=== PATIENT | male | born 1960 | race Caucasian/White ===

== ENCOUNTER 2025-01-05 20:46 | Inpatient (IN) | payer OTHER, SELFPAY ==
[2025-01-05] VITALS (8 sets, daily range): BP systolic 89–130; BP diastolic 67–113; BMI 27.7; BMI 26.8
[2025-01-05 17:25] LABS: Hematocrit 47.5 % (39.0-52.0); Hemoglobin 16.2 g/dL (13.0-18.0); Mean Corp Hgb Conc. 34.1 g/dL (33.0-37.0); Mean Corpuscular Volume 89.6 fL (80.0-94.0); Platelet Count 197 10^3/uL (130-400); Red Cell Dist. Width 13.8 % (11.5-14.5)
[2025-01-05 17:43] LABS: ALT (SGPT) 53 U/L (0-50); AST (SGOT) 36 U/L (17-59); Albumin 4.1 g/dl (3.5-5.0); Alkaline Phosphatase 65 U/L (38-126); Blood Urea Nitrogen 60 mg/dl (9-20); Calcium 9.4 mg/dl (8.4-10.2); Carbon Dioxide 20 mmol/L (22-30); Chloride 101 mmol/L (98-107); Glucose 171 mg/dl (70-99); Potassium 4.4 mmol/L (3.5-5.1); Sodium 135 mmol/L (135-145); Total Protein 6.8 g/dl (6.3-8.2); eGFR 20.56
--- NOTE | 2025-01-05 18:02 | ED.GENMED ---
History of Present Illness
General
Chief Complaint: Abdominal Symptoms
Source: patient
Exam Limitations: none
Time Seen by Provider: 01/05/25 17:48
Nursing documentation reviewed up to this point in time: agreed with
History of Present Illness
History of Present Illness:
Patient is a 64 yr old male with past medical history of Brugada syndrome(followed by cardiology at [facility]) lung cancer kidney cancer hypertension hyperlipidemia presents to the ER for evaluation. Patient has had
diarrhea(approximately 7-10 episodes of liquid diarrhea a day) and fever for the past 3 days as high as 101.9.
Patient does feel very weak.
gave Tylenol this a.m. which did not relieve patient's fever and then gave ibuprofen
Phy Exam
General Physical Exam
General Presentation: no apparent distress
General age: appears stated age
General Skin: warm and dry
General Habitus: normal
General Mental: alert
General Hydration: dry mucous membranes
ENT Exam
ENT Exam: other (Dry mucous membranes)
Cardiovascular Exam
Cardiovascular Exam: no murmur and tachycardia
Pulmonary Exam
Pulmonary Exam: lungs clear and no respiratory distress
Gastrointestinal Exam
Gastrointestinal Exam: non tender and soft
Neurological Exam
Neurological Exam: alert and oriented x3
Musculoskeletal Exam
Musculoskeletal Exam: full ROM
Skin Exam
Skin Exam: normal color and warm/dry
Psychiatric Exam
Psychiatric Exam: normal mood/affect
Course
Orders/Labs/Results
Orders:
Orders
01/05/25 17:04
EKG [Electrocardiogram (*1)] Urgent
Reason for Study: Abdominal Pain
EKG- Treatment ONCE
01/05/25 17:16
Complete Blood Count/With Diff Urgent
Comprehensive Metabolic Panel Urgent
Manual Differential Urgent
01/05/25 18:04
Acetaminophen [Tylenol] 650 mg PO NOW STA
01/05/25 18:05
0.9% Sodium Chloride 1000 ml [Nss] 1,000 ml IV BOLUS
01/05/25 18:16
Ondansetron Injectable [Zofran] 4 mg IV NOW STA
01/05/25 18:28
Stool Culture Urgent
FRANKIE Source: Feces/Stool
Specimen Description:
Date Specimen was Collected: 01/05/25
Time Specimen was Collected: 18:27
01/05/25 19:32
Chest [CR Chest - 2 Views ] Urgent
Comment:
Reason For Exam: cough/fever
01/05/25 19:42
COVID-19 Antigen Urgent
Source: Nasal Swab
Influenza A+B Rapid Molecular Urgent
FRANKIE Source: Nasal Swab
Specimen Description:
01/05/25 20:12
Urinalysis Reflex To Culture Urgent
01/05/25 20:24
Lactic Acid Q4H
Comment: CANCEL 2nd LACTIC ACID IF 1st LACTIC ACID IS LESS THAN 2
Blood Culture Q30M
FRANKIE Source: Blood/Venous
Specimen Description:
Blood Culture Q30M
FRANKIE Source: Blood/Venous
Specimen Description:
01/05/25 20:38
Admit/Transfer Patient As Directed
Co-Sign Provider:
Level of Care: Inpatient admission
Assign to:: Telemetry
Physician / Group: mark
Diagnosis: acute viral gastronteritis
Reason for Telemetry: Arrhythmia
Date to Stop Telemetry: 01/08/25
Time to Stop Telemetry: 11:00
Reason for Hospitalization: acute viral gastronteritis
Expected length of stay greater than two midnights?: Yes
ELOS- Estimated Length of Stay in days: 2
I certify the patient meets the requirements for IP care: Yes
01/05/25 20:39
Code Status As Directed
Resuscitation Status: Full Code
PRN Pain Medication Management As Directed
May give lesser potent ordered pain med per pt: Yes
preference::
Protocol:: Medication orders for pain may be administered in a
manner that supports deferring to patient preference
when the pt is:
- Requesting an ordered lesser potent pain medication.
Least to most potent pain medications are defined
as: acetaminophen < NSAID < tramadol < opioids
(morphine, oxycodone, hydromorphone).
- Requesting a lesser dose of the same medication IF
ORDERED.
- Requesting a less intrusive route of administration
if both routes are prescribed by the provider (PO <
IV).
01/05/25 20:45
Add On - Microbiology Urgent
Tests Added?: CDiff & Norovirus
01/06/25 00:15
Lactic Acid Q4H
Comment: CANCEL 2nd LACTIC ACID IF 1st LACTIC ACID IS LESS THAN 2
01/08/25 11:00
DC Protocol for Telemetry ONCE
Abnormal Lab Results
01/05/25
17:16
Band Neutrophils 24 H %
(0-3)
Lymphocytes (Manual) 14 L %
(20-51)
Carbon Dioxide 20 L mmol/L
(22-30)
BUN 60 H mg/dl
(9-20)
Creatinine 3.2 H mg/dL
(0.7-1.3)
Glucose 171 H mg/dl
(70-99)
Total Bilirubin 1.7 H mg/dl
(0.2-1.3)
ALT 53 H U/L
(0-50)
01/05/25 17:16
01/05/25 17:16
Vital Signs
Initial and Last Documented VS:
Initial Vital Signs
Temp Pulse Resp BP Pulse Ox
97.6 F 104 18 111/73 97
01/05/25 17:02 01/05/25 17:02 01/05/25 17:02 01/05/25 17:02 01/05/25 17:02
Last Documented Vital Signs
Temp Pulse Resp BP Pulse Ox
98.3 F 102 18 130/113 97
01/05/25 20:05 01/05/25 19:30 01/05/25 19:30 01/05/25 19:18 01/05/25 19:30
Metal Fabrication Supervisor consulted with Physician
Metal Fabrication Supervisor consulted with physician?: Yes
Name of Physician Consulted: Padmini
MDM/Problems Addressed
Differential Diagnosis Includes:
Not not limited to viral syndrome, dehydration, colitis
MDM/Problems Addressed:
As documented patient is a 64 old male with Brugada syndrome and several days of liquid diarrhea up to 10 episodes today associated with fever. no blood ;minimal cough no chest pain no shortness of breath no abdominal pain no other sick contacts.
Patient presented to the ER feeling weak. Patient presented to the ER afebrile here with normal white count stable hemoglobin BUN/creatinine are elevated at 60 and 3.2 with a normal potassium. Patient was given fluids. No acute findings on chest
x-ray read by me. Will check urine lactic and blood cultures. Patient is negative for COVID and flu. Will require admission for renal insufficiency recent viral syndrome with fever with concurrent Brugada syndrome.
Chronic conditions affecting care:
Brugada syndrome
*Radiology
Radiology exam reviewed: radiology read reviewed
*Pulse Oximetry
SaO2: 97
Oxygen Mode of Delivery: Room air
Patient hypoxic: no
*Critical Care Note
Total Time (30-74mins, 75-104mins- exclusive of procedures): Not Applicable
Update Note
Update Note:
ED physician DR Robbins spoke with cardiology DR Cabrera
ED Attending Note
-
Portions of this chart may have been created with voice recognition software.� Occasional wrong word or��sound alike� substitutions may have occurred due to the inherent limitations of voice recognition software.
Discharge Plan
Departure
Patient Disposition: Admit
Date of Disposition: 01/05/25
Time of Disposition: 20:19
Admit to: Telemetry
Admit to doctor: hospitalist
Presentation/result/management discussed w/ accepting MD/DO: Hospitalist
Patient with high blood pressure during this ER visit?: No
Covid-19: Not Applicable
Discharge Problem:
Acute renal insufficiency, Acute dehydration, Diarrhea
Interventions
Interventions:
*Risk Screen - Suicide Last Done: 01/05/25 17:03
*General Assessment Last Done: 01/05/25 17:03
*Neglect/Abuse Screening Last Done: 01/05/25 17:03
*ED COVID-19 Vaccine History Last Done: 01/05/25 17:03
HC-B[facility]kls-Yvadbe[facility] Assessment Last Done: 01/05/25 18:00
[2025-01-05 18:32] LABS: Absolute Neutrophils -Man Diff 4.4 10^3/uL (1.4-6.5); Normal RBC Morphology Yes; Platelets Checked Yes; Total Cells Counted 100
[2025-01-05] MEDS: TYLENOL 650 MG PO ×2 (19:22→23:05)
[2025-01-05] MEDS: ZOFRAN 4 MG IV (19:22)
[2025-01-05] MEDS: NSS 1000 IV ×2 (19:23→23:01)
[2025-01-05 20:06] LABS: COVID-19 Antigen Negative (Negative)
--- NOTE | 2025-01-05 20:42 | HPS.HSE ---
Family Physician
-
Family Physician: Margarita Pak MD
Chief Complaint
-
diarrhea
History of Present Illness
64-year-old Lao-speaking male past medical history of Brugada syndrome, diabetes, lung cancer status post surgery/chemotherapy, kidney cancer status post ablation, liver fibrosis secondary to fatty liver, hypertension, hypercholesteremia,
obstructive sleep apnea, kidney stones, former smoker presenting with diarrhea for 3 days. 3 days ago he had cooked fish in the afternoon and afterwards he started developing diarrhea, vomiting and lower abdominal pain across the belly. Diarrhea
is watery. He has eaten almost nothing in the past few days. Feels weak. He had fever as high as 101.9. He had 7-10 episodes of liquid diarrhea per day. He did have some shortness of breath and dizziness but this is improved. Denies chest
pain. No recent antibiotic use.
No sick contacts. Nobody else ate the cooked fish.
He was told to come to the hospital if he ever develops a fever due to history of Brugada syndrome.
He denies smoking or alcohol drugs.
Medical History
Past Medical History
Past Medical History: Reports Other (Brugada syndrome, diabetes, lung cancer status post surgery/chemotherapy, kidney cancer status post ablation, liver fibrosis secondary to fatty liver, hypertension, hypercholesteremia, obstructive sleep apnea,
kidney stones, former smoker)
Past Surgical History: Reports Other (nasal surgery )
Social History
Tobacco: Former Smoker
Alcohol: None
Drug: None
Family History
Family History: Not pertinent
Allergies / Home Medications
Allergies reflects when Allergies were last updated in [facility].
Home Medications with original date entered in [facility]
Allergy/Medication List:
Allergies
Allergy/AdvReac Type Severity Reaction Status Date / Time
No Known Allergies Allergy Unverified 01/05/25 17:04
Review of Systems
-
History Source: Patient
A 12 point ROS was completed and negative except as noted: Yes
Constitutional: Reports No Symptoms
EENT: Reports No Symptoms
Respiratory: Reports No Symptoms
Cardiac: Reports No Symptoms
Abdomen/GI: Reports See HPI
: Reports No Symptoms
Musculoskeletal: Reports No Symptoms
Skin: Reports No Symptoms
Neurological: Reports No Symptoms
Endocrine: Reports No Symptoms
Hematologic/Lymphatic: Reports No Symptoms
Psych: Reports No Symptoms
Physical Exam
Vital Signs
Vital Signs
Temp Pulse Resp BP Pulse Ox
98.3 F 102 18 130/113 97
01/05/25 20:05 01/05/25 19:30 01/05/25 19:30 01/05/25 19:18 01/05/25 19:30
Physical Exam
General: Well Developed, Well Nourished and No Apparent Distress
HEENT: NormoCephalic, Moist mucous membranes and Atraumatic
Respiratory: Clear
Cardiac: S1/S2 and Regular Rhythm; No Murmur or Rub
GI: Soft, Non Distended, Normal Bowel Sounds and Tender (lower abdomen); No Organomegaly
Rectal: Deferred by Provider
Musculoskeletal: No Clubbing, No Cyanosis and No Edema
Skin: No Rash
Neuro: Nonfocal/grossly intact
Laboratory Results
-
01/05/25 17:16
01/05/25 17:16
Laboratory Results
Total Bilirubin 1.7 mg/dl (0.2-1.3) H 01/05/25 17:16
AST 36 U/L (17-59) 01/05/25 17:16
ALT 53 U/L (0-50) H 01/05/25 17:16
Alkaline Phosphatase 65 U/L (38-126) 01/05/25 17:16
Data Reviewed
-
Lab Data: Labs Reviewed by me
Old Records: Reviewed
Impression/Plan
-
IMPRESSION:
PLAN:
# Acute viral gastroenteritis
- IV fluids
- Check stool studies, norovirus, C. difficile
- Check blood cultures
- Hold off antibiotics
- Clear liquid diet if can tolerate
- Tylenol for fever
# Acute kidney injury likely prerenal
- Creatinine of 3.2
- Monitor with IV fluid
- Hold losartan
Known Brugada syndrome
- EKG shows Brugada pattern, type 1
- ER spoke with cardiology who recommends fever control
- Telemetry monitoring
Type 2 diabetes
- Hold glimepiride, metformin
- Insulin sliding scale
- On Mounjaro
Lung cancer status post surgery/chemotherapy
Kidney cancer status post ablation
Liver fibrosis secondary to fatty liver
Essential hypertension
- Continue amlodipine
- Hold losartan
Hyperlipidemia
- Continue statin
- On Repatha
Obstructive sleep apnea
History of nephrolithiasis
Former smoker
GERD
- Continue omeprazole
Full code
DVT prophylaxis�heparin
Clear liquids
[2025-01-05 22:54] LABS: Glucose - Point of Care 136 mg/dl (70-99)
[2025-01-05 22:58] LABS: Lipase 36 U/L (23-300)
[2025-01-05] MEDS: LIPITOR 80 MG PO (23:01)
[2025-01-06] VITALS (7 sets, daily range): BP systolic 104–127; BP diastolic 68–77
[2025-01-06] MEDS: OCEAN, SALINE MIST 2 SPRAYS NASAL (02:05)
[2025-01-06] MEDS: ZOFRAN 4 MG IV ×3 (04:13→20:52)
[2025-01-06 08:08] LABS: ALT (SGPT) 44 U/L (0-50); AST (SGOT) 30 U/L (17-59); Albumin 3.7 g/dl (3.5-5.0); Alkaline Phosphatase 59 U/L (38-126); Blood Urea Nitrogen 66 mg/dl (9-20); Calcium 8.7 mg/dl (8.4-10.2); Carbon Dioxide 16 mmol/L (22-30); Chloride 102 mmol/L (98-107); Estimated Creatinine Clearance 19 ml/min; Glucose 202 mg/dl (70-99); Magnesium 1.7 mg/dl (1.6-2.3); Potassium 4.2 mmol/L (3.5-5.1); Sodium 134 mmol/L (135-145); Total Protein 6.2 g/dl (6.3-8.2); eGFR 15.27
[2025-01-06 08:10] LABS: Hematocrit 45.8 % (39.0-52.0); Hemoglobin 15.7 g/dL (13.0-18.0); Mean Corp Hgb Conc. 34.3 g/dL (33.0-37.0); Mean Corpuscular Volume 90.0 fL (80.0-94.0); Platelet Count 192 10^3/uL (130-400); Red Cell Dist. Width 13.8 % (11.5-14.5)
[2025-01-06 08:41] LABS: Glucose - Point of Care 159 mg/dl (70-99)
[2025-01-06 08:46] LABS: Absolute Neutrophils -Man Diff 3.6 10^3/uL (1.4-6.5); Normal RBC Morphology Yes; Platelets Checked Yes; Total Cells Counted 100
[2025-01-06] MEDS: NSS IV (08:58)
[2025-01-06] MEDS: NORVASC 5 MG PO ×2 (08:59→20:54)
[2025-01-06] MEDS: HEPARIN 5000 UNITS SC ×2 (08:59→20:55)
[2025-01-06] MEDS: PROTONIX 40 MG PO (08:59)
[2025-01-06] MEDS: SODIUM BICARBONATE 1150 MEQ IV ×2 (09:00→16:25)
[2025-01-06] MEDS: NOVOLOG FLEXPEN-LOW RESISTANCE 1 UNITS SC ×3 (09:09→16:37)
[2025-01-06] MEDS: COMPAZINE 5 MG IV ×2 (09:44→16:37)
[2025-01-06 10:39] LABS: Glycohemoglobin (HgbA1c) 6.2 % (4.0-5.6)
--- NOTE | 2025-01-06 11:52 | W.PN.HOSP.TC ---
Addendum entered and electronically signed by Ian Ashley MD 01/06/25 18:04:
RN informed patient with temperature of 100.5. On repeat labs CBC, BMP. Will add prophylactic Zosyn for now while awaiting blood culture results.
Original Note:
Today's Communication/Plan
-
Continue with IV bicarbonate
Probiotic
Await further stool study
Advance to fulls
Nephrology input
Assessment / Plan
Assessment / Plan
General: Well Developed, Well Nourished and No Apparent Distress
HEENT: NormoCephalic, Moist mucous membranes and Atraumatic
Respiratory: Clear
Cardiac: S1/S2 and Regular Rhythm; No Murmur or Rub
GI: Soft, Non Distended, Normal Bowel Sounds and Tender (lower abdomen); No Organomegaly
Rectal: Deferred by Provider
Musculoskeletal: No Clubbing, No Cyanosis and No Edema
Skin: No Rash
Neuro: Nonfocal/grossly intact
# Diarrhea/nausea likely secondary to acute gastroenteritis
- ate fish on and symptoms started next day.
- IV fluids transition normal saline to bicarbonate
- Norovirus and C. difficile negative
- Check blood cultures and lab
- Hold off antibiotics
- Full liquid if he can tolerate.
- Tylenol for fever
# Acute kidney injury likely prerenal in the setting of severe dehydration while on losartan
#Non-anion gap metabolic acidosis likely secondary diarrhea
#Renal cancer status post ablation 11 years ago.
- Creatinine bumped to 4.1.
- Monitor with IV fluid
- Hold losartan
- Check urine analysis with urine sodium, creatinine. Bladder scan protocol.
- BMP on 12.19.25 -Cr0.85. egfr 80. BUN/Cr 18.
- Nephrology input
Known Brugada syndrome
- EKG shows Brugada pattern, type 1
- ER spoke with cardiology who recommends fever control
- Telemetry monitoring
Type 2 diabetes
- Hold glimepiride, metformin
- Insulin sliding scale
- On Mounjaro. A1C 6.2
Lung cancer status post surgery/chemotherapy
Liver fibrosis secondary to fatty liver
Essential hypertension
- Continue amlodipine 5 mg twice daily with hold parameters
- Hold losartan
Hyperlipidemia
- Continue statin
- On Repatha
Obstructive sleep apnea
History of nephrolithiasis
Former smoker
GERD
- Continue omeprazole
Full code
DVT prophylaxis�heparin
Discussed with patient daughter over the phone in detail
Discussed patient spouse at bedside in detail
Anticipated Discharge: > 48 hours
Subjective/Interval History
-
Date of Service: January 06, 2025
remains with diarrhea
feeling nauseous but no vomiting
Objective Data
-
Labs:
Laboratory Results
01/06/25
07:00
WBC 5.1
Hgb 15.7
Hct 45.8
Plt Count 192
Sodium 134 L
Potassium 4.2
Chloride 102
Carbon Dioxide 16 L
BUN 66 H
Creatinine 4.1 H*
Glucose 202 H
Calcium 8.7
Total Bilirubin 1.3
AST 30
ALT 44
Alkaline Phosphatase 59
Vital Signs:
Vital Signs
Temp Pulse Resp BP Pulse Ox
97.6 F 95 16 127/77 98
01/06/25 07:40 01/06/25 08:59 01/06/25 07:40 01/06/25 08:59 01/06/25 07:40
I&O
01/05/25 01/06/25 01/07/25
06:59 06:59 06:59
Intake Total 240 / 240
Balance 240 / 240
Data Reviewed
-
Total Time Spent with Patient (in minutes): 55
[2025-01-06 12:29] LABS: Glucose - Point of Care 177 mg/dl (70-99)
[2025-01-06] MEDS: MAGNESIUM SULFATE 100 IV (12:30)
[2025-01-06] MEDS: VISBIOME 2 CAP PO (12:32)
--- NOTE | 2025-01-06 12:42 | W.CON.NEPH ---
Addendum entered and electronically signed by Jose C Denis MD 01/06/25 17:07:
I agree with the resident's note with the following addition
64-year-old gentleman with diabetes mellitus type 2 controlled on metformin, Mounjaro, glimepiride. He also has hypertension controlled on a multidrug regimen. He has no nephrolithiasis not on medication for this. He has known existing stone
based on ultrasound a few days ago. Reportedly patient had obtained in cooked fish by himself 4 days ago not long after he began to having explosive diarrhea to the point where he stopped eating. He was still drinking about 3 cups of fluid per day
and taking his medications. His urine output also trailed off. Because of this and development of some confusion he was brought to emergency room. His creatinine is noted to be 3.2 which is now worsened up to 4.1. He had severe metabolic
acidosis. He was given 1 L in the ER and then placed on 100 cc/h. He is still having persistent watery diarrhea. He denies any orthostasis or abdominal discomfort currently. He notes no blood in the stool. He has mild hyponatremia at 134.
Patient is awake alert oriented and in no distress. Mood and affect were pleasant, insight and judgment were good. Pupils are equal round and reactive to light, extraocular movements are intact, sclera were anicteric. Hearing was normal, ears and
nose are intact. Oropharynx was clear. Neck was supple with trachea midline and no thyromegaly. Heart was regular rate and rhythm without rubs. Lower extremities without edema. Lungs were clear to auscultation bilaterally and with normal
excursion. Abdomen was soft, nontender, with normal active bowel sounds, and no hepatosplenomegaly. Skin was without rash and with normal turgor.
Laboratory results were reviewed. Prior results are also noted from the residents note.
Chest x-ray 01/05/2025 by my reading shows no acute disease
EKG 01/05/2025 by my reading shows changes consistent with Brugada pattern
Urine studies noted, stool studies noted
Assessment
BLANCA
Acute gastroenteritis
Evolving gap metabolic acidosis
Renal cell cancer s/p ablation 11 years ago
Known Brugada syndrome
T2DM
Essential hypertension
Hyperlipidemia
Nephrolithiasis
Plan
BLANCA likely secondary to prerenal etiology given poor oral intake and ongoing diarrhea
Urine studies suggest prerenal state
Check bladder scan
Renal ultrasound to rule out obstruction
Aggressive IV fluids with Sodium Bicarbonate
Follow BMP
Okay to advance diet
No Imodium until all stool studies have returned.
Discussed with family
Original Note:
Consultation
-
Date/Time Consultation Requested: 01/06/2025 08:25
Date/Time Consultation Performed: 01/06/2025 13:01
Requesting Provider: Ian Ashley MD
Performing Provider: Jose C Denis MD
Reason for Consultation: BLANCA
Medical History
-
Chief Complaint: BLANCA
History of Present Illness:
This is a 64-year-old Moroccan-speaking male with past medical history of Brugada syndrome, T2DM, lung cancer s/p surgery and chemotherapy, renal cell carcinoma s/p ablation 11 years ago, recurrent kidney stones who presented to ED 01/05 due to
ongoing explosive diarrhea and fever as high as 101.9 ongoing for the past 3 days. History obtained from chart review and from patient and family at bedside. Per patient, he reports eating cooked fish 4 days ago, prepared by him. After his meal,
he began to have explosive diarrhea with multiple episodes all through the day. In addition to diarrhea, he had episodes of vomiting and nausea and mild lower abdominal tenderness. Since this episode, he reports he has had decreased oral intake.
States he has not drinking or eating much in the past 3 days. In addition, patient reports he has not been making urine. He denies recent travel, denies antibiotic use. At bedside today, his reports patient has become more confused compared
to typical baseline. Upon presentation, his creatinine was 3.2. Reviewed his previous labs from 12/19/2024 with creatinine 0.85, eGFR 80. We are consulted given patient's ongoing BLANCA. Laboratory today showed an increase in serum creatinine to
4.1, sodium 134, CO2 16, BUN 66, eGFR 15.27
Past Medical History
Brugada syndrome, diabetes, lung cancer status post surgery/chemotherapy, kidney cancer status post ablation, liver fibrosis secondary to fatty liver, hypertension, hypercholesteremia, obstructive sleep apnea, kidney stones, former smoker
Social History
Tobacco: Former Smoker
Alcohol: None
Drug: None
Living: With Family
Allergies / Home Medications
Allergy/AdvReac Type Severity Reaction Status Date / Time
No Known Allergies Allergy Unverified 01/05/25 17:04
�Medication �Instructions �Recorded �Confirmed �Type
amlodipine 5 mg tablet mg Blood Pressure 01/05/25 History
atorvastatin 80 mg tablet 80 mg PO HS High Cholesterol 01/05/25 01/05/25 History
glimepiride 1 mg tablet 1 mg PO BID Diabetes 01/05/25 01/05/25 History
losartan 100 mg tablet 100 mg PO DAILY Blood Pressure 01/05/25 01/05/25 History
omeprazole 20 mg capsule,delayed 20 mg PO DAILY Gastrointestinal 01/05/25 01/05/25 History
release Issue
Review of Systems
-
All other systems: Negative unless noted (Except as documented in HPI)
Physical Exam
Vital Signs
Vital Signs
Temp Pulse Resp BP Pulse Ox
97.9 F 97 16 116/68 96
01/06/25 11:00 01/06/25 11:00 01/06/25 11:00 01/06/25 11:00 01/06/25 11:00
Lab Results
WBC 5.1 10^3/uL (4.8-10.8) 01/06/25 07:00
RBC 5.09 10^6/uL (4.70-6.10) 01/06/25 07:00
Hgb 15.7 g/dL (13.0-18.0) 01/06/25 07:00
Hct 45.8 % (39.0-52.0) 01/06/25 07:00
Plt Count 192 10^3/uL (130-400) 01/06/25 07:00
Sodium 134 mmol/L (135-145) L 01/06/25 07:00
Potassium 4.2 mmol/L (3.5-5.1) 01/06/25 07:00
Chloride 102 mmol/L (98-107) 01/06/25 07:00
Carbon Dioxide 16 mmol/L (22-30) L 01/06/25 07:00
BUN 66 mg/dl (9-20) H 01/06/25 07:00
Creatinine 4.1 mg/dL (0.7-1.3) H* 01/06/25 07:00
eGFR 15.27 01/06/25 07:00
Glucose 202 mg/dl (70-99) H 01/06/25 07:00
Calcium 8.7 mg/dl (8.4-10.2) 01/06/25 07:00
Albumin 3.7 g/dl (3.5-5.0) 01/06/25 07:00
Physical Exam
General: Nontoxic
HEENT: PERRL
Respiratory: Clear
Cardiac: S1/S2 and Regular Rate/Rhythm
Abdomen: Soft, Nondistended, Normal Bowel Sounds and Other (Tender to palpation lower abdomen)
Musculoskeletal: No Edema
Assessment/Plan
-
Assessment
BLANCA
Acute gastroenteritis
Non-anion gap metabolic acidosis
Renal cell cancer s/p ablation 11 years ago
Known Brugada syndrome
T2DM
Essential hypertension
Hyperlipidemia
Kidney stone
Plan
BLANCA likely secondary to prerenal etiology given poor oral intake and ongoing diarrhea
Check urine studies
Bladder scan, I's and O's
Renal ultrasound to rule out obstruction
Aggressive IV fluids with Sodium Bicarb
Trend BMP
--- NOTE | 2025-01-06 12:58 | CM ---
Reviewed the chart notes and spoke with the patient and spouse at the bedside. Patient resides with his spouse in a two story home with two steps to enter. The patient reports no DME/SNF in past, but did have VN years ago. The patient confirmed
his pharmacy of choice is Pharmacy. CM continues to be available to patient/family and is monitoring medical plan for needs at discharge.
Plan: Discharge plans will depend on the patient's progress.
[2025-01-06 14:02] LABS: Urine Character Slightly Cloudy (Clear)
[2025-01-06 14:20] LABS: Urine Squamous Cell 16-20 /LPF (Few)
[2025-01-06 14:31] LABS: Urine White Cell 26-30 /HPF (0-5)
[2025-01-06 15:15] LABS: Body Fluid for Eosinophils No Eosinophils seen
[2025-01-06] MEDS: TYLENOL 650 MG PO ×2 (16:25→23:19)
[2025-01-06 16:37] LABS: Glucose - Point of Care 152 mg/dl (70-99)
[2025-01-06] MEDS: ZOSYN 50 IV (18:13)
--- NOTE | 2025-01-06 18:30 | PTCARENOTE ---
Patient with 99.7F oral temp with 1500 vitals, family stating that d/t Brugada syndrome, any temp over 99.0F is considered fever for patient. made aware, patient medicated with PRN Tylenol - see JUN. Temp rechecked at 1745 for 100.5F. Patient
skin flushed on assessment but states no concerns at this time. IVF infusing through R FA IV. Bladder scan taken by tech 164ml. HR NSR/sinus tach 100s on monitor. MD made aware of temp, repeat labs and IV Zosyn ordered per MD. Patient to ordered
renal US.
[2025-01-06 18:43] LABS: Hematocrit 43.2 % (39.0-52.0); Hemoglobin 15.4 g/dL (13.0-18.0); Mean Corp Hgb Conc. 35.6 g/dL (33.0-37.0); Mean Corpuscular Volume 87.1 fL (80.0-94.0); Platelet Count 196 10^3/uL (130-400); Red Cell Dist. Width 13.6 % (11.5-14.5)
[2025-01-06 19:14] LABS: Blood Urea Nitrogen 75 mg/dl (9-20); Calcium 9.2 mg/dl (8.4-10.2); Carbon Dioxide 19 mmol/L (22-30); Chloride 97 mmol/L (98-107); Estimated Creatinine Clearance 16 ml/min; Glucose 148 mg/dl (70-99); Potassium 3.9 mmol/L (3.5-5.1); Sodium 129 mmol/L (135-145); eGFR 12.64
[2025-01-06 19:47] LABS: Normal RBC Morphology Yes; Platelets Checked Yes; Total Cells Counted 100
[2025-01-06 19:48] LABS: Absolute Neutrophils -Man Diff 3.0 10^3/uL (1.4-6.5)
--- NOTE | 2025-01-06 20:45 | PTCARENOTE ---
Sophia CADET notified of Pt's lab results as ordered by . Instructed to notify of Pt's Bun and Cr. Notified via TT, no new orders.
[2025-01-06] MEDS: LIPITOR 80 MG PO (20:54)
[2025-01-06 22:10] LABS: Glucose - Point of Care 146 mg/dl (70-99)
[2025-01-07] MEDS: SODIUM BICARBONATE 1150 MEQ IV ×3 (00:52→16:54)
[2025-01-07] MEDS: ZOSYN 50 IV ×3 (01:38→17:08)
[2025-01-07 03:00] VITALS: BP 112/73
[2025-01-07 07:30] LABS: Hematocrit 44.0 % (39.0-52.0); Hemoglobin 15.5 g/dL (13.0-18.0); Mean Corp Hgb Conc. 35.2 g/dL (33.0-37.0); Mean Corpuscular Volume 85.6 fL (80.0-94.0); Platelet Count 191 10^3/uL (130-400); Red Cell Dist. Width 13.6 % (11.5-14.5)
[2025-01-07 07:50] VITALS: BP 112/77
[2025-01-07 07:57] LABS: Blood Urea Nitrogen 77 mg/dl (9-20); Calcium 8.6 mg/dl (8.4-10.2); Carbon Dioxide 28 mmol/L (22-30); Chloride 89 mmol/L (98-107); Estimated Creatinine Clearance 14 ml/min; Glucose 159 mg/dl (70-99); Potassium 3.4 mmol/L (3.5-5.1); Sodium 132 mmol/L (135-145); eGFR 10.97
[2025-01-07 08:02] LABS: Glucose - Point of Care 153 mg/dl (70-99)
[2025-01-07] MEDS: PROTONIX 40 MG PO (08:22)
[2025-01-07] MEDS: VISBIOME 2 CAP PO (08:22)
[2025-01-07] MEDS: NORVASC 5 MG PO ×2 (08:23→20:00)
[2025-01-07] MEDS: HEPARIN 5000 UNITS SC ×2 (08:23→20:00)
[2025-01-07] MEDS: NOVOLOG FLEXPEN-LOW RESISTANCE 1 UNITS SC ×2 (08:24→12:14)
[2025-01-07] MEDS: KCL ELIXIR 40 MEQ PO (08:27)
[2025-01-07] MEDS: COMPAZINE 5 MG IV (08:33)
--- NOTE | 2025-01-07 10:23 | W.PN.NEPH.PH ---
Today's Communication / Plan
-
IVF
Assessment/Plan
-
Assessment
BLANCA
Acute gastroenteritis
Non-anion gap metabolic acidosis
Renal cell cancer s/p ablation 11 years ago
Known Brugada syndrome
T2DM
Essential hypertension
Hyperlipidemia
Kidney stones (not seen on US)
Plan
repeat urine studies
there appears to be some indication that rise of Cr is slowing
hopefully he will plateau below 7 and avoid dialysis
he and understand that there is a possibility that HD may bee needed
check serologies
continue IVF
-
-
Date of Service: January 07, 2025
CC / HPI / ROS
-
Chief Complaint:
BLANCA
History of Present Illness:
BLANCA/Cr worse at 5.4
BP stable
slightly less diarrhea
slightly increased UOP
Review of Systems:
no CP/SOB
eating a little only
Labs
-
Labs:
WBC 6.1 10^3/uL (4.8-10.8) 01/07/25 06:44
RBC 5.14 10^6/uL (4.70-6.10) 01/07/25 06:44
Hgb 15.5 g/dL (13.0-18.0) 01/07/25 06:44
Hct 44.0 % (39.0-52.0) 01/07/25 06:44
Plt Count 191 10^3/uL (130-400) 01/07/25 06:44
Sodium 132 mmol/L (135-145) L 01/07/25 06:44
Potassium 3.4 mmol/L (3.5-5.1) L 01/07/25 06:44
Chloride 89 mmol/L (98-107) L 01/07/25 06:44
Carbon Dioxide 28 mmol/L (22-30) 01/07/25 06:44
BUN 77 mg/dl (9-20) H 01/07/25 06:44
Creatinine 5.4 mg/dL (0.7-1.3) H* 01/07/25 06:44
eGFR 10.97 01/07/25 06:44
Glucose 159 mg/dl (70-99) H 01/07/25 06:44
Calcium 8.6 mg/dl (8.4-10.2) 01/07/25 06:44
Albumin 3.7 g/dl (3.5-5.0) 01/06/25 07:00
Physical Exam
-
Vital Signs:
Vital Signs
Temp Pulse Resp BP Pulse Ox
98.5 F 88 16 112/77 95
01/07/25 07:50 01/07/25 08:23 01/07/25 07:50 01/07/25 08:23 01/07/25 07:50
Cardiovascular:: Regular rate and rhythm
Respiratory:: Bilateral: CTA
Lung Excursion:: Normal
Abdomen:: Nontender and Soft
Bowel Sounds:: Normal
Extremity Edema:: None: Bilateral:
--- NOTE | 2025-01-07 10:42 | CM ---
Reviewed the chart notes. CM continues to be available to patient/family and is monitoring medical plan for needs at discharge.
Plan: Discharge plans will depend on the patient's progress.
--- NOTE | 2025-01-07 10:55 | W.PN.HOSP.TC ---
Today's Communication/Plan
-
Continue with IV bicarbonate
Replete potassium
Continue with IV antibiotics for now
Repeat labs
Additional urine studies pending
Assessment / Plan
Assessment / Plan
General: Well Developed, Well Nourished and No Apparent Distress, walking around
HEENT: NormoCephalic, Moist mucous membranes and Atraumatic
Respiratory: Clear
Cardiac: S1/S2 and Regular Rhythm; No Murmur or Rub
GI: Soft, Non Distended, Normal Bowel Sounds
Rectal: Deferred by Provider
Musculoskeletal: No Clubbing, No Cyanosis and No Edema
Skin: No Rash
Neuro: Nonfocal/grossly intact
# Diarrhea/nausea likely secondary to acute gastroenteritis
# Fever
- ate fish on and symptoms started next day.
- IV fluids transition normal saline to bicarbonate
- Norovirus and C. difficile negative
- Blood culture remains negative.
- Since spiked fever trial of IV antibiotics for now.
- Advance to low residue diet. If additional stool cultures negative then start Imodium
- Tylenol for fever
# Acute kidney injury likely prerenal in the setting of severe dehydration while on losartan
#Non-anion gap metabolic acidosis likely secondary diarrhea
#Renal cancer status post ablation 11 years ago.
- Creatinine bumped to 5.4. Hopefully 5.4 creatinine peak and creatinine starts to plateau soon
- Monitor with IV bicarbonate fluids
- Hold losartan
- Not retaining per bladder scan protocol.
- Renal bladder ultrasound negative for hydronephrosis
- Repeat urine studies and additional serologies added per nephrology.
- BMP on 8.25 -Cr0.85. egfr 80. BUN/Cr 18.
- Nephrology input
#Hypokalemia
-replete/monitor
#Mild hyponatremia
-monitor for now
Known Brugada syndrome
- EKG shows Brugada pattern, type 1
- ER spoke with cardiology who recommends fever control
- Telemetry monitoring
Type 2 diabetes
- Hold glimepiride, metformin
- Insulin sliding scale
- On Mounjaro. A1C 6.2 POC 153
Lung cancer status post surgery/chemotherapy
Liver fibrosis secondary to fatty liver
Essential hypertension
- Continue amlodipine 5 mg twice daily with hold parameters
- Hold losartan
Hyperlipidemia
- Continue statin
- On Repatha
Obstructive sleep apnea
History of nephrolithiasis
Former smoker
GERD
- Continue omeprazole
Full code
DVT prophylaxis�heparin
Discussed patient spouse at bedside in detail
Anticipated Discharge: > 48 hours
Subjective/Interval History
-
Date of Service: January 07, 2025
Ambulating in room
Remains with loose bowel movements
Remains with poor appetite
States of intermittent nausea
Objective Data
-
Labs:
Laboratory Results
01/07/25 01/07/25
06:44 17:00
WBC 6.1
Hgb 15.5
Hct 44.0
Plt Count 191
Sodium 132 L Pending
Potassium 3.4 L Pending
Chloride 89 L Pending
Carbon Dioxide 28 Pending
BUN 77 H Pending
Creatinine 5.4 H* Pending
Glucose 159 H Pending
Calcium 8.6 Pending
Vital Signs:
Vital Signs
Temp Pulse Resp BP Pulse Ox
98.5 F 88 16 112/77 95
01/07/25 07:50 01/07/25 08:23 01/07/25 07:50 01/07/25 08:23 01/07/25 07:50
I&O
01/06/25 01/07/25 01/08/25
06:59 06:59 06:59
Intake Total 240 / 240 2330 / 2330
Output Total 60 / 60
Balance 240 / 240 2270 / 2269
[2025-01-07 11:26] VITALS: BP 100/72
[2025-01-07 12:04] LABS: Glucose - Point of Care 183 mg/dl (70-99)
[2025-01-07 12:21] LABS: Urine Character Cloudy (Clear)
[2025-01-07 12:41] LABS: Urine Squamous Cell 0-2 /LPF (Few)
[2025-01-07 12:42] LABS: Urine White Cell 16-20 /HPF (0-5)
[2025-01-07 15:30] VITALS: BP 111/73
[2025-01-07 16:42] LABS: Glucose - Point of Care 223 mg/dl (70-99)
[2025-01-07] MEDS: NOVOLOG FLEXPEN-LOW RESISTANCE 2 UNITS SC (16:52)
[2025-01-07 17:52] LABS: Blood Urea Nitrogen 82 mg/dl (9-20); Calcium 8.3 mg/dl (8.4-10.2); Carbon Dioxide 31 mmol/L (22-30); Chloride 84 mmol/L (98-107); Estimated Creatinine Clearance 16 ml/min; Glucose 185 mg/dl (70-99); Potassium 3.5 mmol/L (3.5-5.1); Sodium 129 mmol/L (135-145); eGFR 12.64
[2025-01-07 19:00] VITALS: BP 118/71
[2025-01-07] MEDS: TYLENOL 650 MG PO (19:59)
[2025-01-07 21:06] LABS: Glucose - Point of Care 166 mg/dl (70-99)
[2025-01-07] MEDS: LIPITOR 80 MG PO (21:42)
[2025-01-07] MEDS: NSS 1000 IV (22:12)
[2025-01-07 23:43] VITALS: BP 108/72
[2025-01-08] MEDS: ZOSYN 50 IV ×2 (02:13→09:05)
[2025-01-08 03:12] VITALS: BP 118/72
[2025-01-08] MEDS: NSS 1000 IV ×2 (06:21→15:45)
[2025-01-08 07:40] VITALS: BP 112/72
[2025-01-08 07:52] LABS: Glucose - Point of Care 153 mg/dl (70-99)
[2025-01-08] MEDS: HEPARIN 5000 UNITS SC ×2 (09:02→20:23)
[2025-01-08] MEDS: VISBIOME 2 CAP PO (09:03)
[2025-01-08] MEDS: PROTONIX 40 MG PO (09:04)
[2025-01-08] MEDS: NORVASC 5 MG PO ×2 (09:04→20:25)
[2025-01-08] MEDS: NOVOLOG FLEXPEN-LOW RESISTANCE 1 UNITS SC ×2 (09:04→11:28)
[2025-01-08] MEDS: ZOFRAN 4 MG IV (09:29)
[2025-01-08 09:43] LABS: Blood Urea Nitrogen 74 mg/dl (9-20); Calcium 8.2 mg/dl (8.4-10.2); Carbon Dioxide 29 mmol/L (22-30); Chloride 91 mmol/L (98-107); Estimated Creatinine Clearance 23 ml/min; Glucose 152 mg/dl (70-99); Potassium 3.3 mmol/L (3.5-5.1); Sodium 131 mmol/L (135-145); eGFR 19.81
--- NOTE | 2025-01-08 10:59 | W.PN.HOSP.TC ---
Today's Communication/Plan
-
Continue to trend creatinine
Monitor stools
Replete potassium IV
Hold losartan
Encourage increased p.o. intake
Assessment / Plan
Assessment / Plan
General: Well Developed, Well Nourished and No Apparent Distress,
HEENT: NormoCephalic, Moist mucous membranes and Atraumatic
Respiratory: Clear
Cardiac: S1/S2 and Regular Rhythm; No Murmur or Rub
GI: Soft, Non Distended, Normal Bowel Sounds, nontender
Rectal: Deferred by Provider
Musculoskeletal: No Clubbing, No Cyanosis and No Edema
Skin: No Rash
Neuro: Nonfocal/grossly intact
# Diarrhea/nausea likely secondary to acute gastroenteritis
# Fever
- ate fish on and symptoms started next day.
- IV fluids per nephrology.
- Norovirus and C. difficile negative
- Blood culture remains negative.
- Remains afebrile for greater than 48 hours. Blood cultures negative. Observe off antibiotics.
- Advance to low residue diet. Salmonella, Shigella pending. Negative for Campylobacter. If additional stool cultures negative then start Imodium
- Tylenol for fever. Diarrhea seems to be slowing down.
# Acute kidney injury likely prerenal in the setting of severe dehydration while on losartan
#Non-anion gap metabolic acidosis likely secondary diarrhea
#Renal cancer status post ablation 11 years ago.
- Creatinine slowly downtrending now at 3.3. Hopefully continues to downtrend
- Monitor with IV fluids.
- Hold losartan
- Not retaining per bladder scan protocol.
- Renal bladder ultrasound negative for hydronephrosis
- Urine eosinophils negative. ANCA panel and complements pending.
- BMP on 12.19.25 -Cr0.85. egfr 80. BUN/Cr 18.
- Nephrology input
#Hypokalemia
-replete/monitor
#Mild hyponatremia
-monitor for now
Known Brugada syndrome
- EKG shows Brugada pattern, type 1
- ER spoke with cardiology who recommends fever control
- Telemetry monitoring
Type 2 diabetes
- Hold glimepiride, metformin
- Insulin sliding scale
- On Mounjaro. A1C 6.2 POC 153
Lung cancer status post surgery/chemotherapy
Liver fibrosis secondary to fatty liver
Essential hypertension
- Continue amlodipine 5 mg twice daily with hold parameters
- Hold losartan
Hyperlipidemia
- Continue statin
- On Repatha
Obstructive sleep apnea
History of nephrolithiasis
Former smoker
GERD
- Continue omeprazole
Full code
DVT prophylaxis�heparin
Discussed patient spouse at bedside in detail
Anticipated Discharge: > 48 hours
Subjective/Interval History
-
Date of Service: January 08, 2025
Post positive bedside patient had improvement in appetite yesterday
States of 1 bowel movement since 3 AM
Had multiple bowel movements yesterday.
Denies any abdominal pain. States of some nausea.
Objective Data
-
Labs:
Laboratory Results
01/08/25
07:47
Sodium 131 L
Potassium 3.3 L
Chloride 91 L
Carbon Dioxide 29
BUN 74 H
Creatinine 3.3 H
Glucose 152 H
Calcium 8.2 L
Vital Signs:
Vital Signs
Temp Pulse Resp BP Pulse Ox
98.2 F 77 16 112/72 96
01/08/25 07:40 01/08/25 09:04 01/08/25 07:40 01/08/25 09:04 01/08/25 07:40
I&O
01/07/25 01/08/25 01/09/25
06:59 06:59 06:59
Intake Total 2330 / 2330 2750 / 2750
Output Total 60 / 60 75 / 75
Balance 2270 / 0 5955 / 763
Data Reviewed
-
Total Time Spent with Patient (in minutes): 55
[2025-01-08 11:00] VITALS: BP 101/65
[2025-01-08] MEDS: KCL 270 MEQ IV (11:15)
[2025-01-08 11:21] LABS: Glucose - Point of Care 150 mg/dl (70-99)
--- NOTE | 2025-01-08 12:51 | W.PN.NEPH.PH ---
Today's Communication / Plan
-
titrate down IVF while increase po intake
replace k
Assessment/Plan
-
Assessment
BLANCA
Acute gastroenteritis
Non-anion gap metabolic acidosis
Renal cell cancer s/p ablation 11 years ago
Known Brugada syndrome
T2DM
Essential hypertension
Hyperlipidemia
Kidney stones (not seen on US)
Plan
cr improving to 3.3
would cont IVF another day-decrease rate to 80
encourage po intake , seem non oliguric subjectively
UA still with microhematuria and pyuria with bact, cx neg , pending serologies
U na still low suggest prerenal still , no hydro on US
no need of dialysis-he escaped
he and understand that there is a possibility that HD may bee needed
replace k
improving mild hyponatremia likely from hypovolemia-increase solute
labs in am
d/w pt and at bedside
if cr cont to improve below 3 potential for d/c per renal stand point
-
-
Date of Service: January 08, 2025
CC / HPI / ROS
-
Chief Complaint:
BLANCA
History of Present Illness:
BLANCA/Cr better at 3.3, k low 3.3
BP stable
no fever
na better at 131
Review of Systems:
no CP/SOB
po intake is improving
diarrhea much better
Labs
-
Labs:
WBC 6.1 10^3/uL (4.8-10.8) 01/07/25 06:44
RBC 5.14 10^6/uL (4.70-6.10) 01/07/25 06:44
Hgb 15.5 g/dL (13.0-18.0) 01/07/25 06:44
Hct 44.0 % (39.0-52.0) 01/07/25 06:44
Plt Count 191 10^3/uL (130-400) 01/07/25 06:44
Sodium 131 mmol/L (135-145) L 01/08/25 07:47
Potassium 3.3 mmol/L (3.5-5.1) L 01/08/25 07:47
Chloride 91 mmol/L (98-107) L 01/08/25 07:47
Carbon Dioxide 29 mmol/L (22-30) 01/08/25 07:47
BUN 74 mg/dl (9-20) H 01/08/25 07:47
Creatinine 3.3 mg/dL (0.7-1.3) H 01/08/25 07:47
eGFR 19.81 01/08/25 07:47
Glucose 152 mg/dl (70-99) H 01/08/25 07:47
Calcium 8.2 mg/dl (8.4-10.2) L 01/08/25 07:47
Albumin 3.7 g/dl (3.5-5.0) 01/06/25 07:00
Physical Exam
-
Vital Signs:
Vital Signs
Temp Pulse Resp BP Pulse Ox
98.3 F 83 16 101/65 98
01/08/25 11:00 01/08/25 11:00 01/08/25 11:00 01/08/25 11:00 01/08/25 11:00
Cardiovascular:: Regular rate and rhythm
Respiratory:: Bilateral: CTA
Lung Excursion:: Normal
Abdomen:: Nontender and Soft
Bowel Sounds:: Normal
Extremity Edema:: None: Bilateral:
Alcaraz Catheter: No
--- NOTE | 2025-01-08 15:24 | CM ---
Reviewed the chart notes. Patient ambulating hallway with spouse. CM continues to be available to patient/family and is monitoring medical plan for needs at discharge.
Plan: Discharge to home once medically stable. No needs identified at this time.
[2025-01-08 15:35] VITALS: BP 100/60
[2025-01-08 17:00] LABS: Glucose - Point of Care 144 mg/dl (70-99)
[2025-01-08] MEDS: NOVOLOG FLEXPEN-LOW RESISTANCE SC (17:01)
[2025-01-08 19:35] VITALS: BP 118/67
[2025-01-08] MEDS: TYLENOL 650 MG PO (20:26)
[2025-01-08 20:56] LABS: Glucose - Point of Care 149 mg/dl (70-99)
[2025-01-08] MEDS: LIPITOR 80 MG PO (21:23)
[2025-01-08 23:29] VITALS: BP 112/63
[2025-01-09 03:15] VITALS: BP 121/72
[2025-01-09] MEDS: NSS 1000 IV ×2 (03:51→16:28)
[2025-01-09 07:00] VITALS: BP 124/81
[2025-01-09 08:13] LABS: Glucose - Point of Care 125 mg/dl (70-99)
[2025-01-09] MEDS: NOVOLOG FLEXPEN-LOW RESISTANCE SC ×2 (08:32→16:29)
[2025-01-09] MEDS: NORVASC 5 MG PO ×2 (08:32→19:48)
[2025-01-09] MEDS: VISBIOME 2 CAP PO (08:32)
[2025-01-09] MEDS: PROTONIX 40 MG PO (08:32)
[2025-01-09] MEDS: HEPARIN 5000 UNITS SC ×2 (08:34→19:48)
[2025-01-09 09:14] LABS: Blood Urea Nitrogen 38 mg/dl (9-20); Calcium 8.3 mg/dl (8.4-10.2); Carbon Dioxide 31 mmol/L (22-30); Chloride 101 mmol/L (98-107); Estimated Creatinine Clearance 60 ml/min; Glucose 118 mg/dl (70-99); Potassium 3.2 mmol/L (3.5-5.1); Sodium 137 mmol/L (135-145); eGFR > 60.00
[2025-01-09] MEDS: KCL 270 MEQ IV (10:08)
[2025-01-09 11:00] VITALS: BP 124/77
[2025-01-09] MEDS: PINK BISMUTH 525 MG PO (11:39)
[2025-01-09 12:13] LABS: Glucose - Point of Care 193 mg/dl (70-99)
[2025-01-09] MEDS: NOVOLOG FLEXPEN-LOW RESISTANCE 1 UNITS SC (12:23)
--- NOTE | 2025-01-09 12:52 | W.PN.HOSP.TC ---
Today's Communication/Plan
-
Trial of Imodium
Encouraged to increase p.o. intake
DC losartan
Replete potassium
Assessment / Plan
Assessment / Plan
General: Well Developed, Well Nourished and No Apparent Distress,
HEENT: NormoCephalic, Moist mucous membranes and Atraumatic
Respiratory: Clear
Cardiac: S1/S2 and Regular Rhythm; No Murmur or Rub
GI: Soft, Non Distended, Normal Bowel Sounds, nontender
Rectal: Deferred by Provider
Musculoskeletal: No Clubbing, No Cyanosis and No Edema
Skin: No Rash
Neuro: Nonfocal/grossly intact
# Salmonella gastroenteritis
# Fever
- ate fish on and symptoms started next day.
- IV fluids per nephrology.
- Norovirus and C. difficile negative
- Blood culture remains negative. For 72 hours
- Remains afebrile for greater than 48 hours. Blood cultures negative. Observe off antibiotics.
- Advance to low residue diet. Trial of Imodium.
- Tylenol for fever. Diarrhea seems to be slowing down.
- Salmonella stool culture noted with resistance to ampicillin and tetracycline. Sensitive to Bactrim if needed. However recovering from severe acute kidney injury and would like to hold off on starting it. Patient with increased risk with
prolonged QTc if started on ciprofloxacin or fluoroquinolones class of drugs with history of Brugada syndrome. Patient has remained afebrile and blood pressures remain stable. Continue with symptomatic management.
# Acute kidney injury likely prerenal in the setting of severe dehydration while on losartan
#Non-anion gap metabolic acidosis likely secondary diarrhea
#Renal cancer status post ablation 11 years ago.
- Creatinine slowly downtrending now at 1.3 now.
- Monitor with IV fluids.
- Hold losartan
- Not retaining per bladder scan protocol.
- Renal bladder ultrasound negative for hydronephrosis
- Urine eosinophils negative.
- BMP on 12.19.25 -Cr0.85. egfr 80. BUN/Cr 18.
- Nephrology input
#Hypokalemia
-replete/monitor
#Mild hyponatremia
-monitor for now
Known Brugada syndrome
- EKG shows Brugada pattern, type 1
- ER spoke with cardiology who recommends fever control
- Telemetry monitoring
Type 2 diabetes
- Hold glimepiride, metformin
- Insulin sliding scale
- On Mounjaro. A1C 6.2 POC 193
Lung cancer status post surgery/chemotherapy
Liver fibrosis secondary to fatty liver
Essential hypertension
- Continue amlodipine 5 mg twice daily with hold parameters
- DC losartan has blood pressure seems to be well-controlled with Norvasc.
Hyperlipidemia
- Continue statin
- On Repatha
Obstructive sleep apnea
History of nephrolithiasis
Former smoker
GERD
- Continue omeprazole
Full code
DVT prophylaxis�heparin
Discussed patient spouse at bedside in detail
Anticipated Discharge: 24 - 48 hours
Subjective/Interval History
-
Date of Service: January 09, 2025
Appetite remains poor
However drinking water and other drinks
Remains with loose stools
No abdominal pain
Objective Data
-
Labs:
Laboratory Results
01/09/25
08:07
Sodium 137
Potassium 3.2 L
Chloride 101
Carbon Dioxide 31 H
BUN 38 H
Creatinine 1.3
Glucose 118 H
Calcium 8.3 L
Vital Signs:
Vital Signs
Temp Pulse Resp BP Pulse Ox
98.1 F 77 20 124/77 96
01/09/25 11:00 01/09/25 11:00 01/09/25 11:00 01/09/25 11:00 01/09/25 11:00
I&O
01/08/25 01/09/25 01/10/25
06:59 06:59 06:59
Intake Total 2750 / 2750 3960 / 3960
Output Total 75 / 75
Balance 2675 / 2675 3960 / 3960
Data Reviewed
-
Total Time Spent with Patient (in minutes): 55
[2025-01-09] MEDS: IMODIUM 4 MG PO (13:09)
--- NOTE | 2025-01-09 14:20 | CM ---
Reviewed the chart notes. CM continues to be available to patient/family and is monitoring medical plan for needs at discharge.
Plan: Discharge to home once medically stable with no anticipated needs.
[2025-01-09 14:59] VITALS: BP 118/70
--- NOTE | 2025-01-09 15:53 | W.PN.NEPH.PH ---
Today's Communication / Plan
-
cont IVF for another day
Assessment/Plan
-
Assessment
BLANCA
Acute gastroenteritis
Non-anion gap metabolic acidosis
Renal cell cancer s/p ablation 11 years ago
Known Brugada syndrome
T2DM
Essential hypertension
Hyperlipidemia
Kidney stones (not seen on US)
Plan
cr improving to 1.3
would cont IVF another day as he still with diarrhea
salmonella in stool positive
encourage po intake
UA still with microhematuria and pyuria with bact, cx neg , pending serologies
replace k
improving mild hyponatremia likely from hypovolemia-increase solute
labs in am
d/w pt and at bedside
d/c plan
-
-
Date of Service: January 09, 2025
CC / HPI / ROS
-
Chief Complaint:
BLANCA
History of Present Illness:
BLANCA/Cr better at 1.3, k low 3.2
BP stable
no fever
na better at 137
Review of Systems:
no CP/SOB
po intake is improving
diarrhea still
Labs
-
Labs:
WBC 6.1 10^3/uL (4.8-10.8) 01/07/25 06:44
RBC 5.14 10^6/uL (4.70-6.10) 01/07/25 06:44
Hgb 15.5 g/dL (13.0-18.0) 01/07/25 06:44
Hct 44.0 % (39.0-52.0) 01/07/25 06:44
Plt Count 191 10^3/uL (130-400) 01/07/25 06:44
Sodium 137 mmol/L (135-145) 01/09/25 08:07
Potassium 3.2 mmol/L (3.5-5.1) L 01/09/25 08:07
Chloride 101 mmol/L (98-107) 01/09/25 08:07
Carbon Dioxide 31 mmol/L (22-30) H 01/09/25 08:07
BUN 38 mg/dl (9-20) H 01/09/25 08:07
Creatinine 1.3 mg/dL (0.7-1.3) 01/09/25 08:07
eGFR > 60.00 01/09/25 08:07
Glucose 118 mg/dl (70-99) H 01/09/25 08:07
Calcium 8.3 mg/dl (8.4-10.2) L 01/09/25 08:07
Albumin 3.7 g/dl (3.5-5.0) 01/06/25 07:00
Physical Exam
-
Vital Signs:
Vital Signs
Temp Pulse Resp BP Pulse Ox
98.1 F 70 20 118/70 97
01/09/25 14:59 01/09/25 14:59 01/09/25 14:59 01/09/25 14:59 01/09/25 14:59
Cardiovascular:: Regular rate and rhythm
Respiratory:: Bilateral: CTA
Lung Excursion:: Normal
Abdomen:: Nontender and Soft
Bowel Sounds:: Normal
Extremity Edema:: None: Bilateral:
Alcaraz Catheter: No
[2025-01-09 16:30] LABS: Glucose - Point of Care 141 mg/dl (70-99)
[2025-01-09 19:23] VITALS: BP 136/76
[2025-01-09] MEDS: LIPITOR 80 MG PO (19:49)
[2025-01-09 21:03] LABS: Glucose - Point of Care 139 mg/dl (70-99)
[2025-01-09 23:19] VITALS: BP 122/71
[2025-01-10 02:59] VITALS: BP 137/77
[2025-01-10] MEDS: NSS 1000 IV (04:46)
[2025-01-10 07:06] VITALS: BP 137/76
[2025-01-10 07:35] LABS: Blood Urea Nitrogen 17 mg/dl (9-20); Calcium 8.5 mg/dl (8.4-10.2); Carbon Dioxide 25 mmol/L (22-30); Chloride 108 mmol/L (98-107); Estimated Creatinine Clearance 86 ml/min; Glucose 137 mg/dl (70-99); Potassium 3.9 mmol/L (3.5-5.1); Sodium 139 mmol/L (135-145); eGFR > 60.00
[2025-01-10 07:59] LABS: Glucose - Point of Care 144 mg/dl (70-99)
[2025-01-10] MEDS: NOVOLOG FLEXPEN-LOW RESISTANCE SC (08:03)
[2025-01-10] MEDS: PROTONIX 40 MG PO (08:12)
[2025-01-10] MEDS: VISBIOME 2 CAP PO (08:12)
[2025-01-10] MEDS: NORVASC 5 MG PO (08:12)
[2025-01-10] MEDS: HEPARIN 5000 UNITS SC (08:12)
[2025-01-10 11:00] VITALS: BP 120/75
--- NOTE | 2025-01-10 11:01 | W.PN.HOSP.TC ---
Today's Communication/Plan
-
cont with increase po intake
dc losartan
OP pcp f/u
Assessment / Plan
Assessment / Plan
General: Well Developed, Well Nourished and No Apparent Distress,
HEENT: NormoCephalic, Moist mucous membranes and Atraumatic
Respiratory: Clear
Cardiac: S1/S2 and Regular Rhythm; No Murmur or Rub
GI: Soft, Non Distended, Normal Bowel Sounds, nontender
Rectal: Deferred by Provider
Musculoskeletal: No Clubbing, No Cyanosis and No Edema
Skin: No Rash
Neuro: Nonfocal/grossly intact
# Salmonella gastroenteritis
# Fever
- ate fish on and symptoms started next day.
- IV fluids per nephrology. Can discontinue.
- Norovirus and C. difficile negative
- Blood culture remains negative x 4 days.
- Last fever noted on 01/06/2025 1745. Blood cultures negative x 4 days. Observe off antibiotics.
- Advance to low residue diet. Trial of Imodium.
- Tylenol for fever. Diarrhea seems to be slowing down.
- Salmonella stool culture noted with resistance to ampicillin and tetracycline. Sensitive to Bactrim if needed. However recovering from severe acute kidney injury and would like to hold off on starting it. Patient with increased risk with
prolonged QTc if started on ciprofloxacin or fluoroquinolones class of drugs with history of Brugada syndrome. Patient has remained afebrile and blood pressures remain stable and not immunocompromised. Continue with symptomatic management.
# Acute kidney injury likely prerenal in the setting of severe dehydration while on losartan
#Non-anion gap metabolic acidosis likely secondary diarrhea
#Renal cancer status post ablation 11 years ago.
- Creatinine at 0.9
- Monitor with IV fluids. DC for the fluid
- Dc losartan
- Not retaining per bladder scan protocol.
- Renal bladder ultrasound negative for hydronephrosis
- Urine eosinophils negative.
- BMP on 12.19.25 -Cr0.85. egfr 80. BUN/Cr 18.
- Nephrology input
#Hypokalemia
-replete/monitor
#Mild hyponatremia
-monitor for now
Known Brugada syndrome
- EKG shows Brugada pattern, type 1
- ER spoke with cardiology who recommends fever control
- Telemetry monitoring
Type 2 diabetes
- Hold glimepiride, metformin
- Insulin sliding scale
- On Mounjaro. A1C 6.2 POC 193
Lung cancer status post surgery/chemotherapy
Liver fibrosis secondary to fatty liver
Essential hypertension
- Continue amlodipine 5 mg twice daily with hold parameters
- DC losartan has blood pressure seems to be well-controlled with Norvasc.
Hyperlipidemia
- Continue statin
- On Repatha
Obstructive sleep apnea
History of nephrolithiasis
Former smoker
GERD
- Continue omeprazole
Full code
DVT prophylaxis�heparin
Discussed patient spouse at bedside in detail on daily basis who assisted in translation at times. Answered all questions to her satisfaction and both were agreeable amenable to discharge planning today.
More than 30 minutes spent in discharge including
Final examination of the patient
Summarizing hospital stay
Instructions for continuing care to all relevant caregivers
Preparation of discharge records, prescriptions, and referral forms
Total time spent (in minutes): 52
Anticipated Discharge: Today
Subjective/Interval History
-
Date of Service: January 10, 2025
Appetite has improved significantly
Denies any abdominal pain, nausea, vomiting.
Objective Data
-
Labs:
Laboratory Results
01/10/25
06:20
Sodium 139
Potassium 3.9
Chloride 108 H
Carbon Dioxide 25
BUN 17
Creatinine 0.9
Glucose 137 H
Calcium 8.5
Vital Signs:
Vital Signs
Temp Pulse Resp BP Pulse Ox
98.8 F 71 20 137/76 95
01/10/25 07:06 01/10/25 07:06 01/10/25 07:06 01/10/25 07:06 01/10/25 07:06
I&O
01/09/25 01/10/25 01/11/25
06:59 06:59 06:59
Intake Total 3960 / 3960 1919
Balance 3960 / 3960 1919
--- NOTE | 2025-01-10 11:14 | W.DCSUMMARY ---
Discharge Summary
Discharge Data
Date of Admission: 01/05/25
Date of Discharge: 01/10/25
-
Pending Results: Yes
Additional Pending Results:
Serologies with supervisor cartography
Hospital Course
64-year-old male past medical history of diabetes, hypertension, hyperlipidemia was presenting from home with complaints of severe diarrhea. Patient was complaining of multiple bowel movements. Decreased appetite and nausea was also associated
with that. Stool studies were checked and was found to be negative for norovirus C. difficile. Patient was also found with severely iRad creatinine on admission. Patient was started IV fluid resuscitation. Patient creatinine continued to
uptrend. Nephrology was consulted. IV fluids which tested the bicarbonate. Potassium was repleted. Patient had episode of fever and underwent extensive workup. Blood cultures remain negative. Zosyn was briefly started which was eventually
stopped. Patient had single episode of fever which subsequently did not happen and he remained afebrile. Patient nausea improved and diet was advanced. Patient was able to tolerate diet without any difficulty. Patient stool culture positive for
Salmonella and stool culture noted with resistance to ampicillin and tetracycline. Sensitive to Bactrim if needed. However recovering from severe acute kidney injury and would like to hold off on starting it to avoid worsening of renal function
and requiring the need for dialysis. Patient with increased risk with prolonged QTc if started on ciprofloxacin or fluoroquinolones class of drugs with history of Brugada syndrome. Patient has remained afebrile and blood pressures remain stable
and not immunocompromised. Continue with symptomatic management.patient continued to improve on a daily basis and was walking around without any difficulty. IV fluid was discontinued. Patient was tolerating diet.
Discharge Plan
-
Patient Disposition: Home (Routine Discharge)
Discharge Diagnosis/Procedures: Salmonella gastroenteritis
Fever acute kidney injury
Non-anion gap metabolic acidosis
Hypokalemia
Mild hyponatremia
Condition: Fair
Diet: Low Residue and Diabetic, Carb Controlled
Activity: As tolerated
Driving Restrictions: As prior to admission
Blood Work: BMP in 1 week via primary doctor
Referrals:
Jose C Denis MD [Active, Nephrology] - in one to two months
Referral Note: Follow-up serologies with nephrology.
Margarita Pak MD [Family Provider, [facility]] - in less than 1 week
Referral Note: Follow-up with primary doctor for repeat blood work with BMP to assess kidney function and also discussed that losartan was discontinued.
Additional Discharge Medication Instructions: Losartan 100 mg was discontinued for now.
Prescriptions:
Continued
atorvastatin 80 mg Tablet
80 mg PO HS
amlodipine 5 mg Tablet
PO BID
glimepiride 1 mg Tablet
1 mg PO BID
omeprazole 20 mg Capsule,Delayed Release(Dr/Ec)
20 mg PO DAILY
Discontinued
losartan 100 mg Tablet
100 mg PO DAILY
Discharge Orders:
Discharge Patient (As Directed); Ordered 01/10/25
Ordered By: Ian Ashley
Discharge Date and Time
Discharge Date/Time: 01/10/25 12:30
Print Language: VINCENTIAN
--- NOTE | 2025-01-10 11:18 | W.PN.NEPH.PH ---
Today's Communication / Plan
-
cap IVF
Assessment/Plan
-
Assessment
BLANCA
Acute gastroenteritis
Non-anion gap metabolic acidosis
Renal cell cancer s/p ablation 11 years ago
Known Brugada syndrome
T2DM
Essential hypertension
Hyperlipidemia
Kidney stones (not seen on US)
Plan
BLANCA resolved
may return to OP meds if desired
po intake encouragement
cap IVF
for DC
-
-
Date of Service: January 10, 2025
CC / HPI / ROS
-
Chief Complaint:
BLANCA
History of Present Illness:
BLANCA/Cr better at 0.9
BP stable
no fever
diarrhea controlled with imodium
Review of Systems:
no CP/SOB
po intake is improving
diarrhea still
Labs
-
Labs:
WBC 6.1 10^3/uL (4.8-10.8) 01/07/25 06:44
RBC 5.14 10^6/uL (4.70-6.10) 01/07/25 06:44
Hgb 15.5 g/dL (13.0-18.0) 01/07/25 06:44
Hct 44.0 % (39.0-52.0) 01/07/25 06:44
Plt Count 191 10^3/uL (130-400) 01/07/25 06:44
Sodium 139 mmol/L (135-145) 01/10/25 06:20
Potassium 3.9 mmol/L (3.5-5.1) 01/10/25 06:20
Chloride 108 mmol/L (98-107) H 01/10/25 06:20
Carbon Dioxide 25 mmol/L (22-30) 01/10/25 06:20
BUN 17 mg/dl (9-20) 01/10/25 06:20
Creatinine 0.9 mg/dL (0.7-1.3) 01/10/25 06:20
eGFR > 60.00 01/10/25 06:20
Glucose 137 mg/dl (70-99) H 01/10/25 06:20
Calcium 8.5 mg/dl (8.4-10.2) 01/10/25 06:20
Albumin 3.7 g/dl (3.5-5.0) 01/06/25 07:00
Physical Exam
-
Vital Signs:
Vital Signs
Temp Pulse Resp BP Pulse Ox
98.8 F 71 20 137/76 95
01/10/25 07:06 01/10/25 07:06 01/10/25 07:06 01/10/25 07:06 01/10/25 07:06
Cardiovascular:: Regular rate and rhythm
Respiratory:: Bilateral: CTA
Lung Excursion:: Normal
Abdomen:: Nontender and Soft
Bowel Sounds:: Normal
Extremity Edema:: None: Bilateral:
[2025-01-10 17:01] LABS: Serine Protease-3, IgG 0 AU/mL (0-19)
[2025-01-10 21:16] LABS: ANA, IgG Reflex to HEp-2 None Detected (None Detected)
== END 2025-01-10 12:30 | disposition home or self-care (01) | DRG 372 ==
LOC: 2 NORTH 20:46
PROVIDERS: Nurse Practitioner; ADMITTING PHYSICIAN Hospitalist; ATTENDING PHYSICIAN Hospitalist; CONSULT PHYSICIAN Specialist; EMERGENCY PHYSICIAN Student in an Organized Health Care Education/Training Program; FAMILY PHYSICIAN Family Medicine
DX: A02.0 Salmonella enteritis (principal); E87.1 Hypo-osmolality and hyponatremia; E87.20 Acidosis, unspecified; N17.9 Acute kidney failure, unspecified; Z16.11 Resistance to penicillins; Z16.29 Resistance to other single specified antibiotic; E11.9 Type 2 diabetes mellitus without complications; E78.00 Pure hypercholesterolemia, unspecified; E86.0 Dehydration; E87.6 Hypokalemia; G47.33 Obstructive sleep apnea (adult) (pediatric); I10 Essential (primary) hypertension; I49.8 Other specified cardiac arrhythmias; K21.9 Gastro-esophageal reflux disease without esophagitis; K76.0 Fatty (change of) liver, not elsewhere classified; K74.00 Hepatic fibrosis, unspecified; Z11.52 Encounter for screening for COVID-19; Z79.85 Long-term (current) use of injectable non-insulin antidiabetic drugs; Z87.891 Personal history of nicotine dependence; Z85.528 Personal history of other malignant neoplasm of kidney; Z85.118 Personal history of other malignant neoplasm of bronchus and lung; Z92.21 Personal history of antineoplastic chemotherapy; Z79.84 Long term (current) use of oral hypoglycemic drugs
CPT/HCPCS: 71046; 76775; 80048; 80053; 81003; 81015; 81099; 82570; 82962; 83036; 83516; 83605; 83690; 83735; 84300; 85025; 85027; 86038; 86063; 86160; 87040; 87045; 87046; 87077; 87086; 87184; 87186; 87324; 87427; 87449; 87502; 87798; 87811; 93005; 96361; 96374; 99285